=== PATIENT | female | born 1960 | race Caucasian/White ===

== ENCOUNTER → 2016-11-13 | Outpatient (CLI) | payer OTHER ==
--- NOTE | ~2016-11-13 | CR230 ---
[facility] A Service of [facility] RADIOLOGY TEXT RESULTS PATIENT: MILLIE DANIELLE LOCATION: [facility] : 56 UNIT #: [id number] AGE: [address]: Jennifer Urbina SEX: F ORDER DR: [id number] [id number] O MR#: [id number] Acc #: [id number] NAME: MILLIE DANIELLE : 1960 SEX: F STUDY DATE/TIME: 11/13/2016 9:28 UNIT: SRAD ROOM: STUDY DESCRIPTION: CR Shoulder Min 2 View Rt Attending Physician: Jennifer Urbina A.P.R.N. Referring Physician: Jennifer Urbina A.P.R.N. Ordering Physician: Jennifer Urbina A.P.R.N. Primary Care Physician: Jennifer Urbina A.P.R.N. MEDICAL IMAGING REPORT This report is preliminary unless electronic signature is present. EXAM Right shoulder HISTORY Shoulder pain since falling in a door frame on 11/06/2016 TECHNIQUE 3 views of the shoulder were obtained. FINDINGS 3 views of the shoulder show moderate degenerative change at the acromioclavicular joint. Glenohumeral joint is normal. There is no evidence of fracture, dislocation or subluxation. Adjacent ribs are intact. 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 Otherwise negative. Dictated by... Ronaldo Severino M.D. THIS IS AN ELECTRONICALLY VERIFIED REPORT Ronaldo Severino M.D. at 11/13/2016 6:01 PM [email or web address]/[email or web address] TD: 11/13/2016 12:17 JOB #: [id number] [facility] A Service of [facility] RADIOLOGY TEXT RESULTS PATIENT: MILLIE DANIELLE LOCATION: [facility] : 56 UNIT #: [id number] AGE: [address]: Jennifer Urbina SEX: F ORDER DR: MEDICAL IMAGING REPORT Page 1 of 1
== END | disposition home or self-care (01) ==
LOC: SRAD 09:02
DX: M25.511 Pain in right shoulder (principal)
CPT/HCPCS: 73030